=== PATIENT | male | born 1935 | race Hispanic/Latino ===

== ENCOUNTER 2018-05-27 08:35 | Observation (INO) | payer MEDICARE, BC ==
[2018-05-27] MEDS ORDERED: Aspirin 325 mg EC Tablets PO STA (08:58)
[2018-05-27 09:10] LABS: BASO # 0.1 K/uL (0.0-0.2); BASO % 0.6 % (0.0-2.0); EOS % 0.4 % (0.0-4.0); HEMOGLOBIN 14.2 g/dL (12.0-18.0); LYMPH # 0.9 K/uL (1.0-4.3); LYMPH % 9.6 % (20.0-40.0); MEAN CORPUSCULAR HEMOGLOBIN 35.4 pg (27.0-31.0); MEAN CORPUSCULAR HGB CONC 34.4 g/dL (33.0-37.0); MEAN PLATELET VOLUME 7.4 fL (7.2-11.7); MONO # 0.7 K/uL (0.0-0.8); MONO % 7.8 % (0.0-10.0); NEUT # 7.7 K/uL (1.8-7.0); NEUT % 81.6 % (50.0-75.0); PLATELET COUNT 165 K/uL (130-400); RED CELL DISTRIBUTION WIDTH 13.9 % (11.5-14.5)
[2018-05-27] MEDS ORDERED: Aspirin 325 mg EC Tablets PO ONE (09:10)
[2018-05-27 09:14] VITALS: BMI 21.4
[2018-05-27 09:15] LABS: WHITE BLOOD COUNT 9.4 K/uL (4.8-10.8)
[2018-05-27 09:18] LABS: INR 1.2; PROTHROMBIN TIME 12.7 SECONDS (9.7-12.2)
--- NOTE | 2018-05-27 09:18 | RAD ---
Date of service: 05/27/2018 PROCEDURE: CHEST RADIOGRAPH, 1 VIEW HISTORY: SOB COMPARISON: 11/19/2014 FINDINGS: LUNGS: Clear. PLEURA: No pneumothorax or pleural fluid seen. CARDIOVASCULAR: Normal. OSSEOUS STRUCTURES: No significant abnormalities. VISUALIZED UPPER ABDOMEN: Normal. OTHER FINDINGS: None. IMPRESSION: No active disease.
[2018-05-27 09:23] LABS: ALB/GLOB RATIO 1.3 (1.0-2.1); ALBUMIN 4.4 g/dL (3.5-5.0); ALT/SGPT 17 U/L (21-72); AST/SGOT 27 U/L (17-59); BLOOD UREA NITROGEN 15 mg/dL (9-20); CALCIUM 9.9 mg/dl (8.6-10.4); GFR AFRICAN-AMERICAN > 60; GFR NON-AFRICAN AMERICAN > 60
[2018-05-27 09:33] LABS: B-TYPE NATRIURETIC PEPTIDE 707 pg/mL (0-900)
--- NOTE | 2018-05-27 09:46 | C.PDOC ---
Time Seen by Provider: 05/27/18 08:45 Chief Complaint (Nursing): Chest Pain Past Medical History Vital Signs: Last Vital Signs Temp 98.7 F 05/27/18 08:45 Pulse 81 05/27/18 08:45 Resp 18 05/27/18 08:45 BP 167/77 H 05/27/18 08:45 Pulse Ox 98 05/27/18 09:48 - Medical History PMH: Diabetes, HTN, Hypercholesterolemia Surgical History: Denies: Pacemaker - [facility] Procedures CLOSED ENDOSCOPIC BIOPSY OF LARGE INTESTINE (06/28/05) ENDO EXCISION/DEST OF LESION OR TISSUE OF STOMACH (01/08/06) ENDO RECTUM POLYPECTOMY (01/13/03) ENDOSC POLYPECTOMY OF LG INTEST (10/31/07) ESOPHAGOGASTRODUODENOSCOPY [EGD] W/CLOSED BIOPSY (10/31/07) INJECT/INFUSE NEC (01/08/06) Family History: States: Unknown Family Hx - Social History Hx Tobacco Use: Yes Hx Alcohol Use: Yes (glass of wine) Hx Substance Use: No - Immunization History Hx Tetanus Toxoid Vaccination: No Hx Influenza Vaccination: Yes Hx Pneumococcal Vaccination: No ED Course And Treatment - Laboratory Results Result Diagrams: 05/27/18 09:02 05/27/18 09:02 O2 Sat by Pulse Oximetry: 98 Medical Decision Making Medical Decision Makin - discussed with Dr. Ankur Tabor and will admit to tele observation. Disposition Discussed With : Ankur Tabor Doctor Will See Patient In The: ED Counseled Patient/Family Regarding: Studies Performed, Diagnosis - Disposition Disposition: HOSPITALIZED Disposition Time: 09:50 Condition: FAIR Forms: [facility] (Armenian) - Clinical Impression Clinical Impression: Chest pain
[2018-05-27 09:51] LABS: BANDS 2 % (0-2); LYMPHOCYTE 9 % (20-40); MONOCYTE 6 % (0-10); NEUTROPHIL 83 % (50-75); TOTAL CELLS COUNTED 100
[2018-05-27 09:52] LABS: PLATELET ESTIMATE NORMAL (NORMAL)
--- NOTE | 2018-05-27 09:56 | C.PDOC ---
History Of Present Illness 82-year-old male, presents to the emergency department with complaints of chest pain that started at 06:30 this morning. Pain is left-sided and described as pressure. Associated symptoms include shortness of breath. He denies any nausea/ vomiting, back pain, fever, neck pain, or any other associated symptoms. No other complaints at this time. Time Seen by Provider: 05/27/18 08:45 Chief Complaint (Nursing): Chest Pain History Per: Patient History/Exam Limitations: no limitations Current Symptoms Are (Timing): Still Present Severity: Moderate Past Medical History Reviewed: Historical Data, Nursing Documentation, Vital Signs Vital Signs: Last Vital Signs Temp 98.7 F 05/27/18 08:45 Pulse 89 05/27/18 09:49 Resp 25 H 05/27/18 09:49 BP 167/75 H 05/27/18 09:49 Pulse Ox 98 05/27/18 10:01 - Medical History PMH: Diabetes, HTN, Hypercholesterolemia Surgical History: Denies: Pacemaker - [facility] Procedures CLOSED ENDOSCOPIC BIOPSY OF LARGE INTESTINE (06/28/05) ENDO EXCISION/DEST OF LESION OR TISSUE OF STOMACH (01/08/06) ENDO RECTUM POLYPECTOMY (01/13/03) ENDOSC POLYPECTOMY OF LG INTEST (10/31/07) ESOPHAGOGASTRODUODENOSCOPY [EGD] W/CLOSED BIOPSY (10/31/07) INJECT/INFUSE NEC (01/08/06) Family History: States: No Known Family Hx - Social History Hx Tobacco Use: Yes Hx Alcohol Use: Yes (glass of wine) Hx Substance Use: No - Immunization History Hx Tetanus Toxoid Vaccination: No Hx Influenza Vaccination: Yes Hx Pneumococcal Vaccination: No Review Of Systems Except As Marked, All Systems Reviewed And Found Negative. Cardiovascular: Positive for: Chest Pain Respiratory: Positive for: Shortness of Breath Gastrointestinal: Negative for: Nausea, Vomiting Musculoskeletal: Negative for: Neck Pain, Arm Pain, Back Pain Physical Exam - Physical Exam Appears: Non-toxic, No Acute Distress Skin: Normal Color, Warm, Dry, No Rash Head: Atraumatic, Normacephalic Eye(s): bilateral: Normal Inspection, PERRL, EOMI Nose: Normal Oral Mucosa: Moist Lips: Normal Appearing Neck: Normal ROM Cardiovascular: Rhythm Regular, No Murmur Respiratory: Normal Breath Sounds, No Accessory Muscle Use Gastrointestinal/Abdominal: Soft, No Tenderness Back: Normal Inspection Extremity: Normal ROM, No Deformity, No Swelling Neurological/Psych: Oriented x3, Normal Speech ED Course And Treatment - Laboratory Results Result Diagrams: 05/27/18 09:02 05/27/18 09:02 ECG: Interpreted By Me, Viewed By Me ECG Rhythm: Sinus Rhythm ECG Interpretation: No Acute Changes Interpretation Of ECbpm, poor R wave progression. Normal intervals. Normal [place]. O2 Sat by Pulse Oximetry: 98 Pulse Ox Interpretation: Normal (RA) Medical Decision Making Medical Decision Making: Plan * Bloodwork * Chest XR * Aspirin * Reassess and Disposition [id number] - discussed with Dr. Ankur Tabor and will admit to tele observation. Disposition - Disposition Disposition Time: 09:50 Condition: FAIR Forms: [facility] (Cuban) - Clinical Impression Clinical Impression: Chest pain - Scribe Statement The provider has reviewed the documentation as recorded by the Scribe (Javi Blake) All medical record entries made by the Scribe were at my direction and personally dictated by me. I have reviewed the chart and agree that the record accurately reflects my personal performance of the history, physical exam, medical decision making, and the department course for this patient. I have also personally directed, reviewed, and agree with the discharge instructions and disposition.
[2018-05-27] MEDS ORDERED: Dextrose 50% SYRINGE Inj (50 ml) IV PRN (12:26)
[2018-05-27] MEDS ORDERED: Glucagon Recombinant 1 mg Inj IM PRN (12:26)
--- NOTE | 2018-05-27 12:48 | CP.PCM.HP ---
<Martina Kirk - Last Filed: 05/27/18 17:57> History of Present Illness - History of Present Illness History of Present Illness: PGY-1 Martina Kirk Medicine History and Physical for Dr. Al service: History obtained from pt, , and friend. Pt is a poor historian regarding his PMH. Patient is an 82 yo male with a history of CAD with 5 stents, 4 cm aortic aneurysm, T2DM, HTN, and HLD who presents with substernal chest pain, SOB, and palpations that began this morning. The patient states he was feeling in his normal state of health when he woke up but then gradually developed chest pain around 7 AM while he was sitting. He describes the pain as pressure. He denies radiation of pain. The patient reports not eating anything or taking his medications because of the pain. 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 The patient reports that the pain resolved on its own shortly after arriving at the hospital. Of note, the patient states he was anxious the day prior due to losing $6000 gambling. The patient was given ASA 325 mg in the ED. Initial troponin and EKG were negative. The patient is now complaining of upper back pain, which he states is chronic. The patient also reports inconsistent compliance with medications, in particular , ASA 81. Pt reports that he ambulates independently at home. He denies PFEIFFER and sweating. He denies recent fevers of chills. He denies N/V/D/C/abd pain. He denies urinary symptoms. He denies current SOB, palpitations. Discussed with pt- is healthcare proxy, no advanced directives, full code PMH: CAD s/p 5 stents- most recent >5 yrs ago T2DM HTN HLD- not treated Aortic aneurysm 4 cm- seen on CT 10/2017 Pulmonary nodule in RLL 5 mm- seen on CT 04/2018 PSH: 5 cardiac stents (3+2) EGD with stomach Bx Rectal polypectomy Meds: Januvia 100 mg daily Glipizide 10 mg daily Losartan 50 mg daily Plavix 75 mg daily ASA 81 mg daily All: NKA FH: father- , old-age mother- age 69 of [place] 3 siblings- 2 children- healthy SH: 1 ppd since 19 yo >2 glasses of wine/day Denies illicit drug use Opens a [employer] Lives at home with PMD: Alin Cardio: [facility] GI: ??[facility] Pod: Raboy Present on Admission - Present on Admission Any Indicators Present on Admission: No History of DVT/PE: No History of Uncontrolled Diabetes: No Urinary Catheter: No Decubitus Ulcer Present: No History Surgical Site Infection Following: None Review of Systems - Constitutional Constitutional: absent: Chills, Excessive Sweating, Fever, Headache, Weakness - EENT Eyes: absent: Change in Vision Ears: absent: Tinnitus, Dizziness Nose/Mouth/Throat: absent: Nasal Congestion, Dry Mouth - Cardiovascular Cardiovascular: Chest Pain (mild). absent: Dyspnea, Edema, Irregular Heart Rhythm, Palpitations (resolved), Syncope - Respiratory Respiratory: absent: Cough, Wheezing, Chest Congestion - Gastrointestinal Gastrointestinal: absent: Abdominal Pain, Constipation, Diarrhea, Nausea, Vomiting - Genitourinary Genitourinary: absent: Difficulty Urinating, Dysuria, Hematuria - Musculoskeletal Musculoskeletal: Back Pain (upper, chronic). absent: Numbness, Radiating Pain into Limb, Tingling - Integumentary Integumentary: absent: New Lesions, Pruritus, Rash - Neurological Neurological: absent: Abnormal Speech, Behavioral Changes, Dizziness, Frequent Falls, Headaches, Sensory Deficit, Syncope, Tingling, Tremor - Psychiatric Psychiatric: Anxiety (regarding loss of money gambling). absent: Behavioral Changes, Confusion - Endocrine Endocrine: absent: Excessive Sweating, Fatigue, Palpitations, Polyuria - Hematologic/Lymphatic Hematologic: absent: Easy Bleeding, Easy Bruising, Lymphadenopathy Past Patient History - Infectious Disease Hx of Infectious Diseases: None - Tetanus Immunizations Tetanus Immunization: Unknown - Past Medical History & Family History Past Medical History?: Yes Pertinent Family History: Mother (69)- of [place] - Past Social History Smoking Status: Heavy Smoker > 10 Cigarettes Daily Chewing Tobacco Use: No Cigar Use: No Occupation: local owner operator truck driver of [employer] Alcohol: > 2 Drinks/Day (2-3 glasses of wine/day) Drugs: Denies Home Situation {Lives}: With Family () Domestic Violence: Negative - CARDIAC Hx Cardiac Disorders: Yes Hx Hypercholesterolemia: Yes Hx Hypertension: Yes Hx Pacemaker: No - NEUROLOGICAL Hx Paralysis: No - ENDOCRINE/METABOLIC Hx Diabetes Mellitus Type 2: Yes Other/Comment: DM - HEMATOLOGICAL/ONCOLOGICAL Hx Blood Transfusions: No Hx Blood Transfusion Reaction: No - MUSCULOSKELETAL/RHEUMATOLOGICAL Hx Musculoskeletal Disorders: No - PSYCHIATRIC Hx Substance Use: No - SURGICAL HISTORY Hx Surgeries: Yes - ANESTHESIA Hx Anesthesia: Yes Hx Anesthesia Reactions: No Hx Malignant Hyperthermia: No Meds Allergies/Adverse Reactions: Allergies Allergy/AdvReac Type Severity Reaction Status Date / Time No Known Allergies Allergy Verified 05/27/18 17:05 Physical Exam - Constitutional Appears: Well, No Acute Distress - Head Exam Head Exam: ATRAUMATIC, NORMAL INSPECTION, NORMOCEPHALIC - Eye Exam Eye Exam: EOMI, Normal appearance, PERRL - ENT Exam ENT Exam: Mucous Membranes Moist - Neck Exam Neck exam: Positive for: Normal Inspection. Negative for: Lymphadenopathy - Respiratory Exam Respiratory Exam: Clear to Auscultation Bilateral, NORMAL BREATHING PATTERN. absent: Rhonchi, Wheezes - Cardiovascular Exam Cardiovascular Exam: REGULAR RHYTHM, +S1, +S2 - GI/Abdominal Exam GI & Abdominal Exam: Bruit, Normal Bowel Sounds, Soft. absent: Tenderness - Rectal Exam Rectal Exam: Deferred - Extremities Exam Extremities exam: Positive for: full ROM, normal inspection, pedal pulses present. Negative for: pedal edema - Back Exam Back exam: NORMAL INSPECTION, paraspinal tenderness (upper thoracic). absent: vertebral tenderness - Neurological Exam Neurological exam: Alert, Oriented x3 - Psychiatric Exam Psychiatric exam: Normal Affect, Normal Mood - Skin Skin Exam: Dry, Intact, Normal Color, Warm Results - Vital Signs Recent Vital Signs: Last Vital Signs Temp 100.6 F H 05/27/18 11:14 Pulse 95 H 05/27/18 11:14 Resp 18 05/27/18 11:14 BP 166/77 H 05/27/18 11:14 Pulse Ox 99 05/27/18 11:14 - Labs Result Diagrams: 05/27/18 09:02 05/27/18 09:02 Labs: Laboratory Results - last 24 hr 05/27/18 05/27/18 05/27/18 09:02 09:02 09:07 WBC 9.4 D RBC 4.00 L Hgb 14.2 Hct 41.2 MCV 103.0 H MCH 35.4 H MCHC 34.4 RDW 13.9 Plt Count 165 MPV 7.4 Neut % (Auto) 81.6 H Lymph % (Auto) 9.6 L [place] % (Auto) 7.8 Eos % (Auto) 0.4 Baso % (Auto) 0.6 Neut # (Auto) 7.7 H Lymph # (Auto) 0.9 L [place] # (Auto) 0.7 Eos # (Auto) 0.0 Baso # (Auto) 0.1 Neutrophils % (Manual) 83 H Band Neutrophils % 2 Lymphocytes % (Manual) 9 L Monocytes % (Manual) 6 Platelet Estimate Normal Macrocytosis (manual) Slight PT 12.7 H INR 1.2 APTT 34 Sodium 136 Potassium 4.6 Chloride 97 L Carbon Dioxide 27 Anion Gap 16 BUN 15 Creatinine 0.8 Est GFR ( Amer) > 60 Est GFR (Non-Af Amer) > 60 Random Glucose 165 H Calcium 9.9 Total Bilirubin 1.2 AST 27 ALT 17 L D Alkaline Phosphatase 73 Troponin I < 0.0120 NT-Pro-B Natriuret Pep 707 Total Protein 8.0 Albumin 4.4 Globulin 3.5 Albumin/Globulin Ratio 1.3 - EKG Data EKG Interpreted by: ER Physician EKG shows normal: Sinus rhythm Rate: Normal - EKG Data When Compared to Previous EKG: No Significant Change Assessment & Plan - Assessment and Plan (Free Text) Assessment: Patient is an 82 yo male who presented with chest pain at rest. It resolved on its own. He has a h/o CAD with 5 cardiac stents. He also has a h/o aortic aneurysm, last measuring 4 cm in 04/2018. The patient reports continuing to smoke a pack a day. Need to r/o cardiac etiology and enlarging/dissecting aortic aneurysm. Plan: 1. Atypical chest pain- h/o cardiac stents x5 - Admit to telemetry - Cardiology consult (Dr. Cali) - Continue home Plavix 75 mg PO daily- f/u cardio recs, pt is >5 yrs since most recent stent - Start ASA 81 mg PO daily - D-dimer <200 - Troponins negative x2- trend third - EKG negative x2- f/u third - Echo- unknown most recent - TSH, T4 - F/u CTA chest/abd/pelvis 2. Aortic aneurysm- r/o aortic dissection - BPs b/l upper extremities - CTA 10/2017 IMPRESSION: Ascending aortic aneurysm measures approximately 4 cm in AP dimension. 5 mm pulmonary nodule, right lower lobe. Biapical pleural parenchymal fibrosis. Possible tiny gallstone. Pancreatic atrophy. T12 compression fracture deformity appears chronic - CTA 04/2018 MEDIASTINUM: Unremarkable thoracic aorta. No aneurysm. Normal sized heart. Main pulmonary artery unremarkable. No vascular congestion. No lymphadenopathy. IMPRESSION: Stable diffuse bilateral fibrotic changes with a stable 4 millimeter nodule in the right lower lobe. - F/u CTA chest/abd/pelvis 3. HTN - Continue home losartan 50 mg PO daily - F/u cardio recs - Vitals q4hrs 4. HLD- not on statin - Start Crestor 5 mg PO qhs - Lipid panel in AM 5. T2DM - F/u A1c - Continue home Januvia 100 mg PO daily - Continue home glipizide 10 mg PO daily - Low-dose sliding scale - Hypoglycemic protocol 6. Pulmonary nodule, RLL- pt asymptomatic, 63 pk yrs - See previous CTA results above - F/u CTA chest/abd/pelvis VTE ppx: SCDs, hold heparin until CTA results GI ppx: not indicated IVF: not indicated Diet: Heart healthy Code status: full code <Ankur Tabor - Last Filed: 05/30/18 19:04> Results - Vital Signs Recent Vital Signs: Last Vital Signs Temp 98.8 F 05/30/18 07:20 Pulse 92 H 05/30/18 08:06 Resp 20 05/30/18 07:20 BP 134/73 05/30/18 07:20 Pulse Ox 97 05/30/18 07:20 - Labs Result Diagrams: 05/29/18 07:47 05/29/18 07:47 Labs: Laboratory Results - last 24 hr 05/29/18 05/30/18 21:02 06:03 POC Glucose (mg/dL) 214 H 141 H Attending/Attestation - Attestation I have personally seen and examined this patient.: Yes I have fully participated in the care of the patient.: Yes I have reviewed all pertinent clinical information: Yes Notes (Text): 05/30/18 19:03 This is a late entry. History, physical, assessment and plan, and all orders were gone over in detail with the resident. Ankur Tabor D.O.
[2018-05-27 15:37] VITALS: RESP 20
[2018-05-27] MEDS ORDERED: Iodixanol 320 MG/ML 100 ML BOTTLE IV ONE (16:45)
[2018-05-27] MEDS: (Novolin R) Insulin Human Regular 100 units/ml vial SC SCH ×2 (17:30→22:04)
--- NOTE | 2018-05-27 18:54 | CP.PCM.CON ---
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 Here at , ECHO normal (my review) TNI neg once, and echo normal LV EF and wall motion. Pain has subsided. Pt is a diabetic. CT of the chest and abdomen just ordered and done, results pending. Pt has no known CAD. Review of Systems - Review of Systems All systems: reviewed and no additional remarkable complaints except (as above) Past Patient History - Infectious Disease Hx of Infectious Diseases: None - Tetanus Immunizations Tetanus Immunization: Unknown - Past Medical History & Family History Past Medical History?: Yes - Past Social History Smoking Status: Heavy Smoker > 10 Cigarettes Daily Chewing Tobacco Use: No Cigar Use: No Occupation: promotions assistant sales marketing of [employer] Alcohol: > 2 Drinks/Day (2-3 glasses of wine/day) Drugs: Denies Home Situation {Lives}: With Family () Domestic Violence: Negative - CARDIAC Hx Cardiac Disorders: Yes Hx Hypercholesterolemia: Yes Hx Hypertension: Yes Hx Pacemaker: No - NEUROLOGICAL Hx Paralysis: No - ENDOCRINE/METABOLIC Hx Diabetes Mellitus Type 2: Yes Other/Comment: DM - HEMATOLOGICAL/ONCOLOGICAL Hx Blood Transfusions: No Hx Blood Transfusion Reaction: No - MUSCULOSKELETAL/RHEUMATOLOGICAL Hx Musculoskeletal Disorders: No - PSYCHIATRIC Hx Substance Use: No - SURGICAL HISTORY Hx Surgeries: Yes - ANESTHESIA Hx Anesthesia: Yes Hx Anesthesia Reactions: No Hx Malignant Hyperthermia: No Meds Allergies/Adverse Reactions: Allergies Allergy/AdvReac Type Severity Reaction Status Date / Time No Known Allergies Allergy Verified 05/27/18 17:05 - Medications Medications: Current Medications Acetaminophen (Tylenol 325mg Tab) 650 mg PO Q6 PRN PRN Reason: fever, pain Aspirin (Ecotrin) 81 mg PO DAILY JAMIN Clopidogrel Bisulfate (Plavix) 75 mg PO DAILY JAMIN Dextrose (Dextrose 50% Inj) 0 ml IV STAT PRN; Protocol PRN Reason: Hypoglycemia Protocol Dextrose (Glutose 15) 0 gm PO ONCE PRN; Protocol PRN Reason: Hypoglycemia Protocol Glipizide (Glucotrol) 10 mg PO DAILY JAMIN Glucagon (Glucagen Diagnostic Kit) 0 mg IM STAT PRN; Protocol PRN Reason: Hypoglycemia Protocol Dextrose (Dextrose 5% In Water 1000 Ml) 1,000 mls @ 0 mls/hr IV .Q0M PRN; Protocol; Per Protocol PRN Reason: Hypoglycemia Protocol Insulin Human Regular (Novolin R) 0 unit SC ACHS JAMIN PRN Reason: Protocol Last Admin: 05/27/18 17:30 Dose: 2 units Losartan Potassium (Cozaar) 50 mg PO DAILY JAMIN Pneumococcal Polyvalent Vaccine (Pneumovax 23 Vaccine) 0.5 ml IM .ONCE ONE Stop: 05/28/18 10:01 Rosuvastatin Calcium (Crestor) 5 mg PO HS JAMIN Sitagliptin Phosphate (Januvia) 100 mg PO DAILY JAMIN Physical Exam - Constitutional Appears: Well - Head Exam Head Exam: ATRAUMATIC - Eye Exam Eye Exam: EOMI - ENT Exam ENT Exam: Mucous Membranes Moist - Neck Exam Neck exam: Positive for: Normal Inspection - Respiratory Exam Respiratory Exam: Clear to Auscultation Bilateral - Cardiovascular Exam Cardiovascular Exam: REGULAR RHYTHM - GI/Abdominal Exam GI & Abdominal Exam: Normal Bowel Sounds - Exam External exam: NORMAL EXTERNAL EXAM - Extremities Exam Extremities exam: Positive for: normal inspection - Back Exam Back exam: NORMAL INSPECTION - Neurological Exam Neurological exam: Alert, Oriented x3, Reflexes Normal - Psychiatric Exam Psychiatric exam: Normal Affect - Skin Skin Exam: Normal Color Results - Vital Signs Recent Vital Signs: Last Vital Signs Temp 98.7 F 05/27/18 15:31 Pulse 78 05/27/18 15:31 Resp 20 05/27/18 15:31 BP 120/78 05/27/18 15:31 Pulse Ox 95 05/27/18 15:31 - Labs Result Diagrams: 05/27/18 09:02 05/27/18 09:02 Labs: Laboratory Results - last 24 hr 05/27/18 05/27/18 05/27/18 09:02 09:02 09:07 WBC 9.4 D RBC 4.00 L Hgb 14.2 Hct 41.2 MCV 103.0 H MCH 35.4 H MCHC 34.4 RDW 13.9 Plt Count 165 MPV 7.4 Neut % (Auto) 81.6 H Lymph % (Auto) 9.6 L [place] % (Auto) 7.8 Eos % (Auto) 0.4 Baso % (Auto) 0.6 Neut # (Auto) 7.7 H Lymph # (Auto) 0.9 L [place] # (Auto) 0.7 Eos # (Auto) 0.0 Baso # (Auto) 0.1 Neutrophils % (Manual) 83 H Band Neutrophils % 2 Lymphocytes % (Manual) 9 L Monocytes % (Manual) 6 Platelet Estimate Normal Macrocytosis (manual) Slight PT 12.7 H INR 1.2 APTT 34 D-Dimer, Quantitative Sodium 136 Potassium 4.6 Chloride 97 L Carbon Dioxide 27 Anion Gap 16 BUN 15 Creatinine 0.8 Est GFR ( Amer) > 60 Est GFR (Non-Af Amer) > 60 Random Glucose 165 H Calcium 9.9 Total Bilirubin 1.2 AST 27 ALT 17 L D Alkaline Phosphatase 73 Troponin I < 0.0120 NT-Pro-B Natriuret Pep 707 Total Protein 8.0 Albumin 4.4 Globulin 3.5 Albumin/Globulin Ratio 1.3 TSH 3rd Generation 05/27/18 05/27/18 14:00 15:10 WBC RBC Hgb Hct MCV MCH MCHC RDW Plt Count MPV Neut % (Auto) Lymph % (Auto) [place] % (Auto) Eos % (Auto) Baso % (Auto) Neut # (Auto) Lymph # (Auto) [place] # (Auto) Eos # (Auto) Baso # (Auto) Neutrophils % (Manual) Band Neutrophils % Lymphocytes % (Manual) Monocytes % (Manual) Platelet Estimate Macrocytosis (manual) PT INR APTT D-Dimer, Quantitative < 200 Sodium Potassium Chloride Carbon Dioxide Anion Gap BUN Creatinine Est GFR ( Amer) Est GFR (Non-Af Amer) Random Glucose Calcium Total Bilirubin AST ALT Alkaline Phosphatase Troponin I < 0.0120 NT-Pro-B Natriuret Pep Total Protein Albumin Globulin Albumin/Globulin Ratio TSH 3rd Generation 0.47 - EKG Data EKG Interpreted by: Myself EKG shows normal: Sinus rhythm (normal) Assessment & Plan - Assessment and Plan (Free Text) Assessment: Although pt is a diabetic and elderly, and at increased risk for CV events, all work up so far is normal. Advise repeat TNI. If negative, and CT is also negative, pt can have an outpatient nuclear stress with lexiscan (pt says that he has gait imbalance). TNI ordered for tomorrow. Advise ambulation.
--- NOTE | 2018-05-27 23:40 | CARD ---
APPROVED REPORT Date of service: 05/27/2018 EXAM: Two-dimensional and M-mode echocardiogram with Doppler and color Doppler. Other Information Quality : GoodRhythm : INDICATION Chest Pain RISK FACTORS Hypertension Hyperlipidemia Diabetes Smoking 2D DIMENSIONS IVSd1.0 (0.7-1.1cm)LVDd4.0 (3.9-5.9cm) PWd1.1 (0.7-1.1cm)LVDs2.7 (2.5-4.0cm) FS (%) 32.5 %LVEF (%)61.3 (>50%) M-Mode DIMENSIONS RVDd1.63 (2.1-3.2cm)Left Atrium (MM)3.53 (2.5-4.0cm) IVSd1.01 (0.7-1.1cm)Aortic Root3.11 (2.2-3.7cm) LVDd4.33 (4.0-5.6cm)Aortic Cusp Exc.1.73 (1.5-2.0cm) PWd0.94 (0.7-1.1cm)FS (%) 46 % LVDs2.34 (2.0-3.8cm)LVEF (%)69 (>50%) Mitral Valve MV E Qgwhjgjd73.1cm/sMV A Byidovex960.8cm/sE/A ratio0.8 TDI E/Lateral E'0.0E/Medial E'0.0 Tricuspid Valve TR Peak [id number]/sTR Peak [id number] LEFT VENTRICLE The left ventricle is normal size. There is normal left ventricular wall thickness. Left ventricle systolic function is normal. The Ejection Fraction is 65-70%. There is normal LV segmental wall motion. The left ventricular diastolic function is abnormal- Grade I-abnormal relaxation pattern. No left ventricle thrombus noted on this study. RIGHT VENTRICLE The right ventricle is normal size. The right ventricular systolic function is normal. ATRIA The left atrium size is normal. The right atrium size is normal. AORTIC VALVE The aortic valve is mildly sclerotic. The aortic valve is trileaflet. No aortic regurgitation is present. There is no aortic valvular stenosis. There is no aortic valvular vegetation. MITRAL VALVE Mitral annular calcification is mild. There is no evidence of mitral valve prolapse. There is no mitral valve stenosis. There is no mitral valve regurgitation noted. TRICUSPID VALVE The tricuspid valve is normal. There is trace to mild tricuspid regurgitation. Right ventricular systolic pressure is estimated at 30-40 mmHg. There is no pulmonary hypertension. PULMONIC VALVE The pulmonary valve is normal in structure. There is no pulmonic valvular regurgitation. There is no pulmonic valvular stenosis. GREAT VESSELS The aortic root is normal in size. The IVC is normal in size and collapses >50% with inspiration. PERICARDIAL EFFUSION There is no pericardial effusion. There is no pleural effusion. <Conclusion> The left ventricle is normal size. Left ventricle systolic function is normal. The Ejection Fraction is 65-70%. The left ventricular diastolic function is abnormal- Grade I-abnormal relaxation pattern. The right ventricle is normal size. The right ventricular systolic function is normal. The left atrium size is normal. The right atrium size is normal. There is trace to mild tricuspid regurgitation.
[2018-05-28 07:38] LABS: BASO % 0.3 % (0.0-2.0); EOS # 0.1 K/uL (0.0-0.7); EOS % 0.9 % (0.0-4.0); HEMOGLOBIN 14.1 g/dL (12.0-18.0); LYMPH % 14.5 % (20.0-40.0); MEAN CELL VOLUME 102.8 fL (80.0-94.0); MEAN CORPUSCULAR HEMOGLOBIN 36.3 pg (27.0-31.0); MEAN CORPUSCULAR HGB CONC 35.3 g/dL (33.0-37.0); MEAN PLATELET VOLUME 7.9 fL (7.2-11.7); MONO # 0.8 K/uL (0.0-0.8); MONO % 11.6 % (0.0-10.0); NEUT # 5.1 K/uL (1.8-7.0); NEUT % 72.7 % (50.0-75.0); NRBC % 0.1 % (0.0-2.0); RBC 3.89 Mil/uL (4.40-5.90); RED CELL DISTRIBUTION WIDTH 13.9 % (11.5-14.5); WHITE BLOOD COUNT 7.1 K/uL (4.8-10.8)
--- NOTE | 2018-05-28 07:53 | CP.PCM.DIS ---
Provider - Provider Date of Admission: 05/27/18 09:49 Attending physician: Ankur Tabor MD Primary care physician: Alin Consults: cardio (Amanda) Time Spent in preparation of Discharge (in minutes): 45 Hospital Course - Lab Results Lab Results: Most Recent Lab Values WBC 7.1 K/uL (4.8-10.8) 05/28/18 07:22 RBC 3.89 Mil/uL (4.40-5.90) L 05/28/18 07:22 Hgb 14.1 g/dL (12.0-18.0) 05/28/18 07:22 Hct 40.0 % (35.0-51.0) 05/28/18 07: MCV 102.8 fL (80.0-94.0) H 05/28/18 07:22 MCH 36.3 pg (27.0-31.0) H 05/28/18 07:22 MCHC 35.3 g/dL (33.0-37.0) 05/28/18 07:22 RDW 13.9 % (11.5-14.5) 05/28/18 07:22 Plt Count 147 K/uL (130-400) 05/28/18 07:22 MPV 7.9 fL (7.2-11.7) 05/28/18 07:22 Neut % (Auto) 72.7 % (50.0-75.0) 05/28/18 07:22 Lymph % (Auto) 14.5 % (20.0-40.0) L 05/28/18 07:22 [place] % (Auto) 11.6 % (0.0-10.0) H 05/28/18 07:22 Eos % (Auto) 0.9 % (0.0-4.0) 05/28/18 07:22 Baso % (Auto) 0.3 % (0.0-2.0) 05/28/18 07:22 Neut # (Auto) 5.1 K/uL (1.8-7.0) 05/28/18 07:22 Lymph # (Auto) 1.0 K/uL (1.0-4.3) 05/28/18 07:22 [place] # (Auto) 0.8 K/uL (0.0-0.8) 05/28/18 07:22 Eos # (Auto) 0.1 K/uL (0.0-0.7) 05/28/18 07:22 Baso # (Auto) 0.0 K/uL (0.0-0.2) 05/28/18 07:22 Neutrophils % (Manual) 83 % (50-75) H 05/27/18 09:02 Band Neutrophils % 2 % (0-2) 05/27/18 09:02 Lymphocytes % (Manual) 9 % (20-40) L 05/27/18 09:02 Monocytes % (Manual) 6 % (0-10) 05/27/18 09:02 Platelet Estimate Normal (NORMAL) 05/27/18 09:02 Macrocytosis (manual) Slight 05/27/18 09:02 PT 12.7 SECONDS (9.7-12.2) H 05/27/18 09:07 INR 1.2 05/27/18 09:07 APTT 34 SECONDS (21-34) 05/27/18 09:07 D-Dimer, Quantitative < 200 ng/mlDDU (0-243) 05/27/18 14:00 Sodium 136 mmol/L (132-148) 05/27/18 09:02 Potassium 4.6 mmol/L (3.6-5.2) 05/27/18 09:02 Chloride 97 mmol/L (98-107) L 05/27/18 09:02 Carbon Dioxide 27 mmol/L (22-30) 05/27/18 09:02 Anion Gap 16 (10-20) 05/27/18 09:02 BUN 15 mg/dL (9-20) 05/27/18 09:02 Creatinine 0.8 mg/dL (0.8-1.5) 05/27/18 09:02 Est GFR ( Amer) > 60 05/27/18 09:02 Est GFR (Non-Af Amer) > 60 05/27/18 09:02 Random Glucose 165 mg/dL (75-110) H 05/27/18 09:02 Calcium 9.9 mg/dl (8.6-10.4) 05/27/18 09:02 Total Bilirubin 1.2 mg/dL (0.2-1.3) 05/27/18 09:02 AST 27 U/L (17-59) 05/27/18 09:02 ALT 17 U/L (21-72) L D 05/27/18 09:02 Alkaline Phosphatase 73 U/L (38-126) 05/27/18 09:02 Troponin I < 0.0120 ng/mL (0.00-0.120) 05/27/18 21:14 NT-Pro-B Natriuret Pep 707 pg/mL (0-900) 05/27/18 09:02 Total Protein 8.0 g/dL (6.3-8.3) 05/27/18 09:02 Albumin 4.4 g/dL (3.5-5.0) 05/27/18 09:02 Globulin 3.5 gm/dL (2.2-3.9) 05/27/18 09:02 Albumin/Globulin Ratio 1.3 (1.0-2.1) 05/27/18 09:02 TSH 3rd Generation 0.47 mIU/L (0.46-4.68) 05/27/18 15:10 Discharge Exam - Head Exam Head Exam: ATRAUMATIC Discharge Plan - Follow Up Plan Condition: FAIR Disposition: HOME/ ROUTINE
[2018-05-28 08:02] LABS: BLOOD UREA NITROGEN 17 mg/dL (9-20); CALCIUM 9.1 mg/dl (8.6-10.4); GFR AFRICAN-AMERICAN > 60; GFR NON-AFRICAN AMERICAN > 60; HDL CHOLESTEROL 38 mg/dL (30-70)
[2018-05-28 08:13] LABS: LDL CHOLESTEROL 34 mg/dL (0-129)
[2018-05-28] MEDS ORDERED: Pneumococcal 23-Valent Vaccine IM ONE (10:00)
--- NOTE | 2018-05-28 10:42 | CP.PCM.PN ---
Subjective - Date & Time of Evaluation Date of Evaluation: 05/28/18 Time of Evaluation: 09:40 - Subjective Subjective: PGY-1 Martina Kirk D.O. Medicine progress note for Dr. Kirkland's service: Patient was seen and examined this morning. He was resting comfortably in bed. He states he slept well and is feeling good. He reports chest pain has resolved. He is still having mild upper back pain, but this is chronic. Denies palpitations. Denies SOB. Denies fever, chills, or diaphoresis. Denies N/V/D/C. Objective - Vital Signs/Intake and Output Vital Signs (last 24 hours): Temp Pulse Resp BP Pulse Ox 98.0 F 92 H 20 104/63 98 05/28/18 07:20 05/28/18 07:50 05/28/18 07:20 05/28/18 07:20 05/28/18 08:14 Intake and Output: 05/28/18 05/28/18 06:59 18:59 Output Total 400 Balance -400 - Medications Medications: Current Medications Acetaminophen (Tylenol 325mg Tab) 650 mg PO Q6 PRN PRN Reason: fever, pain Apixaban (Eliquis) 2.5 mg PO BID [facility] Aspirin (Ecotrin) 81 mg PO DAILY [facility] Dextrose (Dextrose 50% Inj) 0 ml IV STAT PRN; Protocol PRN Reason: Hypoglycemia Protocol Dextrose (Glutose 15) 0 gm PO ONCE PRN; Protocol PRN Reason: Hypoglycemia Protocol Glipizide (Glucotrol) 10 mg PO DAILY [facility] Glucagon (Glucagen Diagnostic Kit) 0 mg IM STAT PRN; Protocol PRN Reason: Hypoglycemia Protocol Dextrose (Dextrose 5% In Water 1000 Ml) 1,000 mls @ 0 mls/hr IV .Q0M PRN; Protocol; Per Protocol PRN Reason: Hypoglycemia Protocol Insulin Human Regular (Novolin R) 0 unit SC ACHS [facility] PRN Reason: Protocol Last Admin: 05/27/18 22:04 Dose: Not Given Metoprolol Succinate (Toprol Xl) 25 mg PO DAILY [facility] Rosuvastatin Calcium (Crestor) 5 mg PO HS [facility] Last Admin: 05/27/18 23:00 Dose: 5 mg Sitagliptin Phosphate (Januvia) 100 mg PO DAILY [facility] - Labs Labs: 05/28/18 07:22 05/28/18 07:22 PT 12.7 SECONDS (9.7-12.2) H 05/27/18 09:07 INR 1.2 05/27/18 09:07 APTT 34 SECONDS (21-34) 05/27/18 09:07 - Constitutional Appears: Well, No Acute Distress, Other (thin) - Head Exam Head Exam: ATRAUMATIC, NORMAL INSPECTION, NORMOCEPHALIC - Eye Exam Eye Exam: EOMI, Normal appearance - ENT Exam ENT Exam: Mucous Membranes Moist, Normal Exam - Neck Exam Neck Exam: Normal Inspection - Respiratory Exam Respiratory Exam: Clear to Ausculation Bilateral, NORMAL BREATHING PATTERN. absent: Rhonchi, Wheezes - Cardiovascular Exam Cardiovascular Exam: Irregular Rhythm (Afib- rate 90) - GI/Abdominal Exam GI & Abdominal Exam: Bruit, Soft, Normal Bowel Sounds. absent: Mass - Rectal Exam Rectal Exam: Deferred - Extremities Exam Extremities Exam: Full ROM, Normal Inspection. absent: Pedal Edema - Back Exam Back Exam: NORMAL INSPECTION, paraspinal tenderness (upper thoracic). absent: vertebral tenderness - Neurological Exam Neurological Exam: Alert, Awake, Oriented x3. absent: Normal Gait (unsteady) - Psychiatric Exam Psychiatric exam: Normal Affect, Normal Mood - Skin Skin Exam: Dry, Intact, Normal Color, Warm Assessment and Plan - Assessment and Plan (Free Text) Assessment: Patient is an 82 yo male who presented with chest pain at rest. It resolved on its own. He has a h/o CAD with 5 cardiac stents. He also has a h/o aortic aneurysm, last measuring 4 cm in 04/2018. The patient reports continuing to smoke a pack a day. Ruled out enlarging/dissecting aortic aneurysm with CTA. New onset paroxysmal Afib last night. Patient again in Afib in afternoon. Patient is asymptomatic- denies chest pain, palpitations, SOB. Plan: Atypical chest pain- h/o cardiac stents x5 - Admit to telemetry - Cardiology consult (Dr. Cali)- stress test in AM - Incentive spirometer q4hrs while awake - ASA 81 mg PO daily - Discontinue Plavix as stents were >1 yr ago - D-dimer <200 - BNP 707 - Troponins negative x4 - EKG negative x2 - Third EKG Afib RVR (109) - Fourth EKG Afib (90s) - Echo- EF 65-70%, no overt abnormalities to explain symptoms - TSH, T4 - F/u CTA chest/abd/pelvis - F/u stress test New onset paroxysmal atrial fibrillation- Afib RVR overnight, then a brief run of aberration was noted, not V tach, prior to onset Afib this afternoon - Monitor on telemetry - Start metoprolol succinate 25 mg PO daily - Start Eliquis 2.5 mg PO BID - Discontinue Plavix as stents were >1 yr ago - Cardiology consult (Karely) - F/u stress test Aortic aneurysm- r/o aortic dissection - BPs b/l upper extremities equal - CTA 10/2017 IMPRESSION: Ascending aortic aneurysm measures approximately 4 cm in AP dimension. - CTA 04/2018 MEDIASTINUM: Unremarkable thoracic aorta. No aneurysm. - CTA chest/abd/pelvis 05/27- in the abd and pelvis, arterial phase contrast- enhanced and lack of oral contrast limits interpretation, abd u/s recommended AORTA: The main pulmonary artery segment is normal in caliber. No thoracic aortic aneurysm. Remainder of the retroperitoneum reflects non aneurysmal atherosclerotic abdominal aorta. T2DM, chronic - A1c 7.4 - Continue home Januvia 100 mg PO daily - Continue home glipizide 10 mg PO daily - Accuchecks ACHS - Low-dose sliding scale - Hypoglycemic protocol Essential HTN, chronic, stable - Discontinue losartan - Start metoprolol succinate 25 mg PO daily - Vitals q4hrs HLD, chronic, stable- not on home statin - Start Crestor 5 mg PO qhs - Lipid panel wnl Pulmonary nodule, RLL, stable in size- pt asymptomatic, 63 pk yrs - Incentive spirometer q4hrs while awake - CT 10/2017- 5 mm pulmonary nodule, right lower lobe. - CTA chest/abd/pelvis 05/27: COPD pattern reiterated with stable 5 mm nodule right lower lobe. VTE ppx: SCDs, Eliquis 2.5 mg PO BID GI ppx: not indicated IVF: not indicated Diet: Heart healthy Code status: full code
[2018-05-28] MEDS: (Novolin R) Insulin Human Regular 100 units/ml vial SC SCH ×4 (11:00→21:10)
--- NOTE | 2018-05-28 12:36 | CT ---
Date of service: 05/27/2018 PROCEDURE: CT Chest with contrast (Pulmonary Angiogram) HISTORY: h/o aortic aneurysm COMPARISON: Chest CT without contrast 05/01/2018. TECHNIQUE: Axial computed tomography images were obtained of the chest in the pulmonary arterial phase of enhancement. Coronal and sagittal reformatted images were created and reviewed. Imaging of the abdomen pelvis completed from the domes the diaphragm to the symphysis pubis in the arterial phase of contrast enhancement. Intravenous contrast dose: Visipaque 320, 100 cc Radiation dose: Total exam DLP = 517.50 mGy-cm. This CT exam was performed using one or more of the following dose reduction techniques: Automated exposure control, adjustment of the mA and/or kV according to patient size, and/or use of iterative reconstruction technique. FINDINGS: PULMONARY ARTERIES: Unremarkable. No pulmonary embolism. AORTA: The main pulmonary artery segment is normal in caliber. No thoracic aortic aneurysm. LUNGS: COPD pattern reiterated. No alveolar infiltrate. Linear atelectasis or fibrosis in the right upper lobe posterior laterally. Stable 5 mm nodule right lower lobe image 64 series 4. PLEURAL SPACES: Unremarkable. No effusion or pneumothorax. HEART: No cardiomegaly. Minimal pericardial effusion identified. LYMPH NODES: Mild mediastinal lymphadenopathy is appreciate including a sub carinal lymph node measuring 2.1 x 1.5 cm. Otherwise shotty paratracheal lymph nodes are identified. BONES, CHEST WALL: The thoracic inlet appears unremarkable. No fracture or destructive lesion ABDOMEN AND PELVIS: In the abdomen and pelvis, arterial phase contrast-enhanced and lack of oral contrast limits the interpretation. No masses or gross intrahepatic biliary dilatation is seen throughout the liver with the spleen nonfocal except for small granuloma calcified at the inferior portion. The gallbladder is contracted with cholelithiasis at the neck. Stomach is distended with retained oral contrast material. Pancreas is mildly atrophic but without mass or ductal dilatation. Bilateral adrenal glands appear normal a small cyst is seen at the upper pole right kidney. Tiny lucency is seen at the upper midpole left kidney potentially reflecting cortical infarct. Remainder of the retroperitoneum reflects line non aneurysmal atherosclerotic abdominal aorta. The bowel is not obstructed. Moderate AP material scattered throughout the majority colon. No pericolic reaction appreciated throughout. Small bowel is unremarkable as imaged. Normal appendix. Images through the pelvis reveal a mildly thick-walled urinary bladder moderately distended, with cystitis difficult to completely exclude versus possible outlet obstruction. Prostate gland is enlarged with cystic changes at the central to upper segment. Clinically correlate. There is a lumbarized transitional S1 vertebral body. A moderate anterior wedge compression fracture is chronic. No acute fracture identified or spondylolisthesis. IMPRESSION: 1. No CT evidence of pulmonary embolus. 2. COPD pattern reiterated with stable 5 mm nodule right lower lobe. 3. No acute abdominal or pelvic findings including T12 to body fracture appeared S1 is lumbarized. 4. Cholelithiasis. 5. Enlarged prostate gland with cystic changes. Thick-walled urinary bladder may reflect outlet obstruction or cystitis. Clinically correlate further. Concordant preliminary report from [facility], 05/27/2018.
[2018-05-28] MEDS ORDERED: Metoprolol Succinate 25 mg XL Tab PO ONE (15:12)
--- NOTE | 2018-05-28 15:26 | CARD ---
APPROVED REPORT Date of service: 05/28/2018 EKG Measurement Heart [id number] <Conclusion> Atrial fibrillation with rapid ventricular response Left axis deviation Septal infarct, age undetermined Abnormal ECG
--- NOTE | 2018-05-28 15:37 | CP.PCM.PN ---
Subjective - Date & Time of Evaluation Date of Evaluation: 05/28/18 Time of Evaluation: 15:30 - Subjective Subjective: THe patient feels well. He went into atrial fibrillation, and has stayed there. A brief run of aberration was noted, not V tach. The rate is in the 90's Pt has a 4.0 cm abdominal aortic aneurysm. Yesterday, pt neglected to tell me that he has had cardiac stents, several, the last 2 years ago. Objective - Vital Signs/Intake and Output Vital Signs (last 24 hours): Temp Pulse Resp BP Pulse Ox 98.0 F 88 20 104/63 93 L 05/28/18 07:20 05/28/18 11:44 05/28/18 07:20 05/28/18 07:20 05/28/18 10:45 Intake and Output: 05/28/18 05/28/18 06:59 18:59 Output Total 400 Balance -400 - Medications Medications: Current Medications Acetaminophen (Tylenol 325mg Tab) 650 mg PO Q6 PRN PRN Reason: fever, pain Apixaban (Eliquis) 2.5 mg PO BID [facility] Last Admin: 05/28/18 12:43 Dose: 2.5 mg Aspirin (Ecotrin) 81 mg PO DAILY [facility] Last Admin: 05/28/18 11:00 Dose: 81 mg Dextrose (Dextrose 50% Inj) 0 ml IV STAT PRN; Protocol PRN Reason: Hypoglycemia Protocol Dextrose (Glutose 15) 0 gm PO ONCE PRN; Protocol PRN Reason: Hypoglycemia Protocol Glipizide (Glucotrol) 10 mg PO DAILY [facility] Last Admin: 05/28/18 11:00 Dose: 10 mg Glucagon (Glucagen Diagnostic Kit) 0 mg IM STAT PRN; Protocol PRN Reason: Hypoglycemia Protocol Dextrose (Dextrose 5% In Water 1000 Ml) 1,000 mls @ 0 mls/hr IV .Q0M PRN; Protocol; Per Protocol PRN Reason: Hypoglycemia Protocol Insulin Human Regular (Novolin R) 0 unit SC ACHS [facility] PRN Reason: Protocol Last Admin: 05/28/18 12:43 Dose: 5 units Metoprolol Succinate (Toprol Xl) 25 mg PO DAILY [facility] Rosuvastatin Calcium (Crestor) 5 mg PO HS [facility] Last Admin: 05/27/18 23:00 Dose: 5 mg Sitagliptin Phosphate (Januvia) 100 mg PO DAILY [facility] Last Admin: 05/28/18 11:00 Dose: 100 mg - Labs Labs: 05/28/18 07:22 05/28/18 07:22 PT 12.7 SECONDS (9.7-12.2) H 05/27/18 09:07 INR 1.2 05/27/18 09:07 APTT 34 SECONDS (21-34) 05/27/18 09:07 - Constitutional Appears: Well - Head Exam Head Exam: NORMAL INSPECTION - Eye Exam Eye Exam: EOMI - ENT Exam ENT Exam: Mucous Membranes Moist - Neck Exam Neck Exam: Full ROM - Respiratory Exam Respiratory Exam: Clear to Ausculation Bilateral - Cardiovascular Exam Cardiovascular Exam: Irregular Rhythm - GI/Abdominal Exam GI & Abdominal Exam: Normal Bowel Sounds - Exam External exam: NORMAL EXTERNAL EXAM - Extremities Exam Extremities Exam: Normal Inspection - Back Exam Back Exam: NORMAL INSPECTION - Neurological Exam Neurological Exam: Alert, Awake, Normal Gait - Psychiatric Exam Psychiatric exam: Normal Affect - Skin Skin Exam: Normal Color Assessment and Plan - Assessment and Plan (Free Text) Assessment: 1. Atrial fibrillation: beta adryan resumed for rate control, (pt was taking as outpatient). Advance as needed if BP allows. 2. Stop losartan as bp is low (normal LV EF). 3. Eliquis 2.5 bid, asa 81, stop plavic (stents were more than a year ago). 4. Chest discomfort: as p[t has known cad, a stress test will be performed tomorrow, preferably with walking, to assess ischemia based on the patients actual functional capacity (lexiscan, a maximal stress, would not represent his daily myocardial perfusion demand). 5. pt has alleged AAA. CT did not mention it as the dye had dissipated by the time the abdomen was scanned. Abdominal US is advised.
[2018-05-29 08:18] LABS: BASO % 0.4 % (0.0-2.0); EOS # 0.1 K/uL (0.0-0.7); EOS % 1.7 % (0.0-4.0); HEMOGLOBIN 13.5 g/dL (12.0-18.0); LYMPH # 1.2 K/uL (1.0-4.3); LYMPH % 14.9 % (20.0-40.0); MEAN CELL VOLUME 103.1 fL (80.0-94.0); MEAN CORPUSCULAR HEMOGLOBIN 36.2 pg (27.0-31.0); MEAN CORPUSCULAR HGB CONC 35.1 g/dL (33.0-37.0); MEAN PLATELET VOLUME 7.7 fL (7.2-11.7); MONO # 0.9 K/uL (0.0-0.8); MONO % 10.7 % (0.0-10.0); NEUT # 5.8 K/uL (1.8-7.0); NEUT % 72.3 % (50.0-75.0); RBC 3.75 Mil/uL (4.40-5.90); RED CELL DISTRIBUTION WIDTH 14.2 % (11.5-14.5)
[2018-05-29] MEDS: (Novolin R) Insulin Human Regular 100 units/ml vial SC SCH ×4 (08:23→17:11)
[2018-05-29 08:25] LABS: ALB/GLOB RATIO 1.1 (1.0-2.1); ALBUMIN 3.5 g/dL (3.5-5.0); ALT/SGPT 21 U/L (21-72); AST/SGOT 35 U/L (17-59); BLOOD UREA NITROGEN 24 mg/dL (9-20); GFR AFRICAN-AMERICAN > 60; GFR NON-AFRICAN AMERICAN > 60
[2018-05-29] MEDS ORDERED: Caffeine Citrated **INJ** 20 MG/ML IV ONE (08:53)
[2018-05-29] MEDS: Metoprolol Succinate 25 mg XL Tab PO SCH (11:44)
--- NOTE | 2018-05-29 11:44 | US ---
Date of service: 05/29/2018 PROCEDURE: DUPLEX DOPPLER ULTRASOUND ABDOMINAL AORTA HISTORY: History of Aneurysm COMPARISON: ABDOMEN PELVIS CT WITH CONTRAST 05/27/2018. TECHNIQUE: Ultrasound of the abdominal aorta was performed using grayscale and duplex Doppler techniques and longitudinal and transverse projections. FINDINGS: The abdominal aorta is widely patent through its bifurcation with approximate distal caliber measured as such: Proximal segment 2.3 x 1.7 cm. Mid segment 1.9 x 1.6 cm. Distal segment 1.3 x 1.1 cm. These are all normal measurements with no aneurysmal dilatation appreciated. No significant stenosis is appreciated with the abdominal aorta appearing nonfocal sonographically. IMPRESSION: No sonographic evidence to suggest abdominal aortic aneurysm or high-grade stenosis.
--- NOTE | 2018-05-29 15:10 | CP.PCM.PN ---
Subjective - Date & Time of Evaluation Date of Evaluation: 05/29/18 Time of Evaluation: 15:08 - Subjective Subjective: pt feels well today. Objective - Vital Signs/Intake and Output Vital Signs (last 24 hours): Temp Pulse Resp BP Pulse Ox 98.2 F 78 20 110/66 98 05/29/18 07:00 05/29/18 11:47 05/29/18 07:00 05/29/18 07:00 05/29/18 11:51 Intake and Output: 05/29/18 05/29/18 06:59 18:59 Output Total 750 Balance -750 - Medications Medications: Current Medications Acetaminophen (Tylenol 325mg Tab) 650 mg PO Q6 PRN PRN Reason: fever, pain Apixaban (Eliquis) 2.5 mg PO BID [facility] Last Admin: 05/29/18 11:44 Dose: 2.5 mg Aspirin (Ecotrin) 81 mg PO DAILY [facility] Last Admin: 05/29/18 11:44 Dose: 81 mg Dextrose (Dextrose 50% Inj) 0 ml IV STAT PRN; Protocol PRN Reason: Hypoglycemia Protocol Dextrose (Glutose 15) 0 gm PO ONCE PRN; Protocol PRN Reason: Hypoglycemia Protocol Glipizide (Glucotrol) 10 mg PO DAILY [facility] Last Admin: 05/29/18 11:44 Dose: 10 mg Glucagon (Glucagen Diagnostic Kit) 0 mg IM STAT PRN; Protocol PRN Reason: Hypoglycemia Protocol Dextrose (Dextrose 5% In Water 1000 Ml) 1,000 mls @ 0 mls/hr IV .Q0M PRN; Protocol; Per Protocol PRN Reason: Hypoglycemia Protocol Insulin Human Regular (Novolin R) 0 unit SC ACHS [facility] PRN Reason: Protocol Last Admin: 05/29/18 13:31 Dose: 2 units Metoprolol Succinate (Toprol Xl) 25 mg PO DAILY [facility] Last Admin: 05/29/18 11:44 Dose: 25 mg Rosuvastatin Calcium (Crestor) 5 mg PO HS [facility] Last Admin: 05/28/18 21:10 Dose: 5 mg Sitagliptin Phosphate (Januvia) 100 mg PO DAILY [facility] Last Admin: 05/29/18 11:43 Dose: 100 mg - Labs Labs: 05/29/18 07:47 05/29/18 07:47 PT 12.7 SECONDS (9.7-12.2) H 05/27/18 09:07 INR 1.2 05/27/18 09:07 APTT 34 SECONDS (21-34) 05/27/18 09:07 - Constitutional Appears: Well - Head Exam Head Exam: NORMAL INSPECTION - Eye Exam Eye Exam: EOMI, Normal appearance - ENT Exam ENT Exam: Mucous Membranes Moist - Respiratory Exam Respiratory Exam: Clear to Ausculation Bilateral - Cardiovascular Exam Cardiovascular Exam: REGULAR RHYTHM - Exam External exam: NORMAL EXTERNAL EXAM - Back Exam Back Exam: NORMAL INSPECTION - Neurological Exam Neurological Exam: Alert, Awake, Oriented x3 - Psychiatric Exam Psychiatric exam: Normal Affect Assessment and Plan - Assessment and Plan (Free Text) Assessment: 1. i reviewed nuclear images: there is a fixed inferoapicla LV perfusion defect. 2. pt is in nsr now 3. He feels well. pt is stable for discharge. Continue eliquis: pt understand why it was ordered. continue metoprolol. F/y with Dr Mason in a week.
--- NOTE | 2018-05-29 15:30 | CARD ---
APPROVED REPORT Date of service: 05/28/2018 EKG Measurement Heart [id number] <Conclusion> Atrial fibrillation Left axis deviation Abnormal ECG
--- NOTE | 2018-05-29 16:53 | CP.PCM.PN ---
<Martina Kirk - Last Filed: 05/29/18 16:48> Subjective - Date & Time of Evaluation Date of Evaluation: 05/29/18 Time of Evaluation: 07:30 - Subjective Subjective: PGY-1 Martina Kirk D.O. Medicine progress note for Dr. Kirkland's service: Patient was seen and examined this morning. He was resting comfortably in bed. He was NPO since midnight for a stress test today. He reports chest pain has not returned. Denies palpitations as well. He is currently in normal sinus rhythm. Denies SOB. Denies fever, chills, or diaphoresis. Denies N/V/D/C. Objective - Vital Signs/Intake and Output Vital Signs (last 24 hours): Temp Pulse Resp BP Pulse Ox 98.4 F 71 20 135/67 98 05/29/18 15:00 05/29/18 15:00 05/29/18 15:00 05/29/18 15:00 05/29/18 15:00 Intake and Output: 05/29/18 05/29/18 06:59 18:59 Intake Total 300 Output Total 750 Balance -750 300 - Medications Medications: Current Medications Acetaminophen (Tylenol 325mg Tab) 650 mg PO Q6 PRN PRN Reason: fever, pain Apixaban (Eliquis) 2.5 mg PO BID [facility] Last Admin: 05/29/18 11:44 Dose: 2.5 mg Aspirin (Ecotrin) 81 mg PO DAILY [facility] Last Admin: 05/29/18 11:44 Dose: 81 mg Dextrose (Dextrose 50% Inj) 0 ml IV STAT PRN; Protocol PRN Reason: Hypoglycemia Protocol Dextrose (Glutose 15) 0 gm PO ONCE PRN; Protocol PRN Reason: Hypoglycemia Protocol Glipizide (Glucotrol) 10 mg PO DAILY [facility] Last Admin: 05/29/18 11:44 Dose: 10 mg Glucagon (Glucagen Diagnostic Kit) 0 mg IM STAT PRN; Protocol PRN Reason: Hypoglycemia Protocol Dextrose (Dextrose 5% In Water 1000 Ml) 1,000 mls @ 0 mls/hr IV .Q0M PRN; Protocol; Per Protocol PRN Reason: Hypoglycemia Protocol Insulin Human Regular (Novolin R) 0 unit SC ACHS [facility] PRN Reason: Protocol Last Admin: 05/29/18 13:31 Dose: 2 units Metoprolol Succinate (Toprol Xl) 25 mg PO DAILY [facility] Last Admin: 05/29/18 11:44 Dose: 25 mg Rosuvastatin Calcium (Crestor) 5 mg PO [facility] Last Admin: 05/28/18 21:10 Dose: 5 mg Sitagliptin Phosphate (Januvia) 100 mg PO DAILY [facility] Last Admin: 05/29/18 11:43 Dose: 100 mg - Labs Labs: 05/29/18 07:47 05/29/18 07:47 PT 12.7 SECONDS (9.7-12.2) H 05/27/18 09:07 INR 1.2 05/27/18 09:07 APTT 34 SECONDS (21-34) 05/27/18 09:07 - Constitutional Appears: Well, No Acute Distress, Other (thin) - Head Exam Head Exam: ATRAUMATIC, NORMAL INSPECTION, NORMOCEPHALIC - Eye Exam Eye Exam: EOMI, Normal appearance - ENT Exam ENT Exam: Mucous Membranes Moist ( ) - Neck Exam Neck Exam: Normal Inspection - Respiratory Exam Respiratory Exam: Clear to Ausculation Bilateral, NORMAL BREATHING PATTERN - Cardiovascular Exam Cardiovascular Exam: REGULAR RHYTHM, +S1, +S2. absent: Murmur - GI/Abdominal Exam GI & Abdominal Exam: Soft, Normal Bowel Sounds. absent: Tenderness - Rectal Exam Rectal Exam: Deferred - Extremities Exam Extremities Exam: Full ROM - Back Exam Back Exam: NORMAL INSPECTION - Neurological Exam Neurological Exam: Alert, Awake, Oriented x3 - Psychiatric Exam Psychiatric exam: Normal Affect, Normal Mood - Skin Skin Exam: Dry, Intact, Normal Color, Warm Assessment and Plan - Assessment and Plan (Free Text) Assessment: Patient is an 82 yo male who presented with chest pain at rest. It resolved on its own. He has a h/o CAD with 5 cardiac stents. He also has a h/o aortic aneurysm, last measuring 4 cm in 04/2018. The patient reports continuing to smoke a pack a day. Ruled out enlarging/dissecting aortic aneurysm with CTA. New onset paroxysmal Afib last night. Patient again in Afib in afternoon. Patient is asymptomatic- denies chest pain, palpitations, SOB. Repeat CT and abdominal u/s ruled out aortic aneurysm. Plan: Atypical chest pain- h/o cardiac stents x5 - Admit to telemetry - Cardiology consult (Dr. Cali)- stress test in AM - Incentive spirometer q4hrs while awake - ASA 81 mg PO daily - Discontinue Plavix as stents were >1 yr ago - D-dimer <200 - BNP 707 - Troponins negative x4 - EKG negative x2 - Third EKG Afib RVR (109) - Fourth EKG Afib (90s) - Echo- EF 65-70%, no overt abnormalities to explain symptoms - TSH, T4 - CTA chest/abd/pelvis- no acute abnormalities, no aortic aneurysm - Walking stress test- cardiology (Dr. Cali) cleared patient to follow- up as outpatient New onset paroxysmal atrial fibrillation- Afib RVR overnight, then a brief run of aberration was noted, not V tach, prior to onset Afib this afternoon - Monitor on telemetry - Start metoprolol succinate 25 mg PO daily - Start Eliquis 2.5 mg PO BID - Discontinue Plavix as stents were >1 yr ago - Cardiology consult (Karely) - Walking stress test- cardiology (Dr. Cali) cleared patient to follow- up as outpatient Aortic aneurysm- r/o aortic dissection - BPs b/l upper extremities equal - CTA 10/2017 IMPRESSION: Ascending aortic aneurysm measures approximately 4 cm in AP dimension. - CTA 04/2018 MEDIASTINUM: Unremarkable thoracic aorta. No aneurysm. - CTA chest/abd/pelvis 05/27- in the abd and pelvis, arterial phase contrast- enhanced and lack of oral contrast limits interpretation, abd u/s recommended AORTA: The main pulmonary artery segment is normal in caliber. No thoracic aortic aneurysm. Remainder of the retroperitoneum reflects non aneurysmal atherosclerotic abdominal aorta. T2DM, chronic, stable - A1c 7.4 - Continue home Januvia 100 mg PO daily - Continue home glipizide 10 mg PO daily - Accuchecks ACHS - Low-dose sliding scale - Hypoglycemic protocol Essential HTN, chronic, stable - Discontinue losartan - Start metoprolol succinate 25 mg PO daily - Vitals q4hrs HLD, chronic, stable- not on home statin - Start Crestor 5 mg PO qhs - Lipid panel wnl Pulmonary nodule, RLL, stable in size- pt asymptomatic, 63 pk yrs - Incentive spirometer q4hrs while awake - CT 10/2017- 5 mm pulmonary nodule, right lower lobe. - CTA chest/abd/pelvis 05/27: COPD pattern reiterated with stable 5 mm nodule right lower lobe. PT consult VTE ppx: SCDs, Eliquis 2.5 mg PO BID GI ppx: not indicated IVF: not indicated Diet: Heart healthy Code status: full code Dispo: likely discharge tomorrow pending PT home services <Ankur Tabor - Last Filed: 05/30/18 19:02> Objective - Vital Signs/Intake and Output Vital Signs (last 24 hours): Temp Pulse Resp BP Pulse Ox 98.8 F 92 H 20 134/73 97 05/30/18 07:20 05/30/18 08:06 05/30/18 07:20 05/30/18 07:20 05/30/18 07:20 - Labs Labs: 05/29/18 07:47 05/29/18 07:47 PT 12.7 SECONDS (9.7-12.2) H 05/27/18 09:07 INR 1.2 05/27/18 09:07 APTT 34 SECONDS (21-34) 05/27/18 09:07 Attending/Attestation - Attestation I have personally seen and examined this patient.: Yes I have fully participated in the care of the patient.: Yes I have reviewed all pertinent clinical information, including history, physical exam and plan: Yes Notes (Text): 05/30/18 19:02 This is a late entry. Care of this patient was gone over in detail with the resident. Ankur Tabor D.O.
--- NOTE | 2018-05-30 06:13 | CP.PCM.DIS ---
<Martina Kirk - Last Filed: 05/30/18 17:58> Provider - Provider Date of Admission: 05/27/18 09:49 Attending physician: Ryan Riddle DO Primary care physician: Dr. Ogden Consults: cardio (Karely), PT Time Spent in preparation of Discharge (in minutes): 45 Diagnosis - Discharge Diagnosis (1) Atypical chest pain Status: Resolved Priority: High (2) New onset atrial fibrillation Status: Acute Priority: Medium (3) CAD (coronary artery disease) Status: Chronic Priority: Medium (4) T2DM (type 2 diabetes mellitus) Status: Chronic Priority: Low (5) HTN (hypertension) Status: Chronic Priority: Low (6) HLD (hyperlipidemia) Status: Chronic Priority: Low Hospital Course - Lab Results Lab Results: Most Recent Lab Values WBC 8.0 K/uL (4.8-10.8) 05/29/18 07:47 RBC 3.75 Mil/uL (4.40-5.90) L 05/29/18 07:47 Hgb 13.5 g/dL (12.0-18.0) 05/29/18 07:47 Hct 38.6 % (35.0-51.0) 05/29/18 07:47 MCV 103.1 fL (80.0-94.0) H 05/29/18 07:47 MCH 36.2 pg (27.0-31.0) H 05/29/18 07:47 MCHC 35.1 g/dL (33.0-37.0) 05/29/18 07:47 RDW 14.2 % (11.5-14.5) 05/29/18 07:47 Plt Count 146 K/uL (130-400) 05/29/18 07:47 MPV 7.7 fL (7.2-11.7) 05/29/18 07:47 Neut % (Auto) 72.3 % (50.0-75.0) 05/29/18 07:47 Lymph % (Auto) 14.9 % (20.0-40.0) L 05/29/18 07:47 Patrick % (Auto) 10.7 % (0.0-10.0) H 05/29/18 07:47 Eos % (Auto) 1.7 % (0.0-4.0) 05/29/18 07:47 Baso % (Auto) 0.4 % (0.0-2.0) 05/29/18 07:47 Neut # (Auto) 5.8 K/uL (1.8-7.0) 05/29/18 07:47 Lymph # (Auto) 1.2 K/uL (1.0-4.3) 05/29/18 07:47 Patrick # (Auto) 0.9 K/uL (0.0-0.8) H 05/29/18 07:47 Eos # (Auto) 0.1 K/uL (0.0-0.7) 05/29/18 07:47 Baso # (Auto) 0.0 K/uL (0.0-0.2) 05/29/18 07:47 Neutrophils % (Manual) 83 % (50-75) H 05/27/18 09:02 Band Neutrophils % 2 % (0-2) 05/27/18 09:02 Lymphocytes % (Manual) 9 % (20-40) L 05/27/18 09:02 Monocytes % (Manual) 6 % (0-10) 05/27/18 09:02 Platelet Estimate Normal (NORMAL) 05/27/18 09:02 Macrocytosis (manual) Slight 05/27/18 09:02 PT 12.7 SECONDS (9.7-12.2) H 05/27/18 09:07 INR 1.2 05/27/18 09:07 APTT 34 SECONDS (21-34) 05/27/18 09:07 D-Dimer, Quantitative < 200 ng/mlDDU (0-243) 05/27/18 14:00 Sodium 133 mmol/L (132-148) 05/29/18 07:47 Potassium 4.7 mmol/L (3.6-5.2) 05/29/18 07:47 Chloride 98 mmol/L (98-107) 05/29/18 07:47 Carbon Dioxide 30 mmol/L (22-30) 05/29/18 07:47 Anion Gap 9 (10-20) L 05/29/18 07:47 BUN 24 mg/dL (9-20) H 05/29/18 07:47 Creatinine 0.9 mg/dL (0.8-1.5) 05/29/18 07:47 Est GFR ( Amer) > 60 05/29/18 07:47 Est GFR (Non-Af Amer) > 60 05/29/18 07:47 POC Glucose (mg/dL) 214 mg/dL (65-110) H 05/29/18 21:02 Random Glucose 173 mg/dL (75-110) H 05/29/18 07:47 Hemoglobin A1c 7.4 % (4.2-6.5) H 05/28/18 07:22 Calcium 9.0 mg/dl (8.6-10.4) 05/29/18 07:47 Phosphorus 3.4 mg/dL (2.5-4.5) 05/29/18 07:47 Magnesium 2.0 mg/dL (1.6-2.3) 05/29/18 07:47 Total Bilirubin 0.8 mg/dL (0.2-1.3) 05/29/18 07:47 AST 35 U/L (17-59) 05/29/18 07:47 ALT 21 U/L (21-72) D 05/29/18 07:47 Alkaline Phosphatase 57 U/L (38-126) 05/29/18 07:47 Troponin I < 0.0120 ng/mL (0.00-0.120) 05/28/18 07:22 NT-Pro-B Natriuret Pep 707 pg/mL (0-900) 05/27/18 09:02 Total Protein 6.7 g/dL (6.3-8.3) 05/29/18 07:47 Albumin 3.5 g/dL (3.5-5.0) D 05/29/18 07:47 Globulin 3.2 gm/dL (2.2-3.9) 05/29/18 07:47 Albumin/Globulin Ratio 1.1 (1.0-2.1) 05/29/18 07:47 Triglycerides 43 mg/dL (0-149) 05/28/18 07:22 Cholesterol 106 mg/dL (0-199) 05/28/18 07:22 LDL Cholesterol Direct 34 mg/dL (0-129) 05/28/18 07:22 HDL Cholesterol 38 mg/dL (30-70) 05/28/18 07:22 Free T4 1.32 ng/dL (0.78-2.19) 05/28/18 07:22 TSH 3rd Generation 0.47 mIU/L (0.46-4.68) 05/27/18 15:10 - Hospital Course Hospital Course: Patient is an 82 yo male with a history of CAD with 5 stents, 4 cm aortic aneurysm, T2DM, HTN, and HLD who presents with substernal chest pain, SOB, and palpations that began this morning. The patient states he was feeling in his normal state of health when he woke up but then gradually developed chest pain around 7 AM while he was sitting. He describes the pain as pressure. He denies radiation of pain. The patient reports not eating anything or taking his medications because of the pain. 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 The patient reports that the pain resolved on its own shortly after arriving at the hospital. Of note, the patient states he was anxious the day prior due to losing $6000 gambling. The patient was given ASA 325 mg in the ED. Initial troponin and EKG were negative. The patient is now complaining of upper back pain, which he states is chronic. The patient also reports inconsistent compliance with medications, in particular , ASA 81. Pt reports that he ambulates independently at home. He denies PFEIFFER and sweating. He denies recent fevers of chills. He denies N/V/D/C/abd pain. He denies urinary symptoms. He denies current SOB, palpitations. CT was ruled out with negative troponins x4 and EKGs. Aortic aneurysm was ruled out with both CTA chest, abdominal, pelvis, and abdominal u/s. Patient was monitored on telemetry. On day 2, he was found to have paroxysmal A fib (HR 90s) . Consequently, he was started on Eliquis. He was seen by cardiology (Dr. Cali). He had a walking stress test and was cleared for discharge to follow- up as an outpatient. Patient's vitals and blood glucose were well controlled throughout his admission. Upon discharge, the patient was asymptomatic. He was in normal sinus rhythm. He denied chest pain. He denied palpitations. He denied SOB. He was eating and sleeping well. He will follow up with his hardware design engineer, Dr. Mason, as an outpatient. He will also be referred to outpatient PT. Discharge Exam - Head Exam Head Exam: ATRAUMATIC, NORMAL INSPECTION, NORMOCEPHALIC - Eye Exam Eye Exam: EOMI, Normal appearance - ENT Exam ENT Exam: Mucous Membranes Moist, Normal Exam - Neck Exam Neck exam: Normal Inspection - Respiratory Exam Respiratory Exam: Clear to PA & Lateral, NORMAL BREATHING PATTERN - Cardiovascular Exam Cardiovascular Exam: REGULAR RHYTHM, +S1, +S2 - GI/Abdominal Exam GI & Abdominal Exam: Bruit, Normal Bowel Sounds, Soft, Unremarkable - Rectal Exam Rectal Exam: Deferred - Extremities Exam Extremities exam: full ROM, normal capillary refill, normal inspection, pedal pulses present - Back Exam Back exam: NORMAL INSPECTION - Neurological Exam Neurological exam: Abnormal Gait (unsteady), Alert, CN II-XII Intact, Oriented x3 - Psychiatric Exam Psychiatric exam: Normal Affect, Normal Mood - Skin Skin Exam: Dry, Intact, Normal Color, Warm Discharge Plan - Discharge Medications Prescriptions: Apixaban [Eliquis] 2.5 mg PO BID #60 tab Aspirin [Ecotrin] 81 mg PO DAILY #30 tabec GlipiZIDE [Glucotrol] 10 mg PO DAILY #30 tab Metoprolol Succinate XL [Toprol XL] 25 mg PO DAILY #30 tab Rosuvastatin Calcium [Crestor] 5 mg PO HS #30 tab SITagliptin [Januvia] 100 mg PO DAILY #30 tab - Follow Up Plan Condition: STABLE Disposition: HOME/ ROUTINE Patient education suggested?: Yes Instructions: Sitagliptin, Heart Healthy Diet, Chest Pain, High Blood Pressure (DC), Apixaban, Aspirin, Glipizide, Metoprolol, Rosuvastatin Additional Instructions: Patient is cleared for discharge as per Dr. Ankur Tabor. He with follow-up with his primary care provider, Dr. Ogden, and his hardware design engineer, Dr. Mason, within one week of discharge. The patient will return home and will be referred for outpatient physical therapy. Patient was instructed to stop smoking and drinking. The patient is instructed to stop the following medications: Losartan Plavix The patient is being discharged with the following new prescriptions. These are the only medications that the patient should be taking: Aspirin 81 mg daily- 8 AM Metoprolol 25 mg daily- 8 AM Eliquis 2.5 mg twice a day- 8 AM and 8 PM Januvia 100 mg daily- 8 AM Glipizide 10 mg daily with lunch- 1 PM Crestor 5 mg each night- 8 PM Patient is to return to the ED if symptoms recur or are worsening. This was explained to the patient who understands and agrees. Referrals: Mario Ogden MD [Staff Provider] - Melquiades Mason DO [Doctor Osteopathy] - <Ankur Tabor - Last Filed: 05/30/18 19:02> Provider - Provider Date of Admission: 05/27/18 09:49 Attending physician: Ryan Riddle DO Time Spent in preparation of Discharge (in minutes): 40 Hospital Course - Lab Results Lab Results: Most Recent Lab Values WBC 8.0 K/uL (4.8-10.8) 05/29/18 07:47 RBC 3.75 Mil/uL (4.40-5.90) L 05/29/18 07:47 Hgb 13.5 g/dL (12.0-18.0) 05/29/18 07:47 Hct 38.6 % (35.0-51.0) 05/29/18 07:47 MCV 103.1 fL (80.0-94.0) H 05/29/18 07:47 MCH 36.2 pg (27.0-31.0) H 05/29/18 07:47 MCHC 35.1 g/dL (33.0-37.0) 05/29/18 07:47 RDW 14.2 % (11.5-14.5) 05/29/18 07:47 Plt Count 146 K/uL (130-400) 05/29/18 07:47 MPV 7.7 fL (7.2-11.7) 05/29/18 07:47 Neut % (Auto) 72.3 % (50.0-75.0) 05/29/18 07:47 Lymph % (Auto) 14.9 % (20.0-40.0) L 05/29/18 07:47 Patrick % (Auto) 10.7 % (0.0-10.0) H 05/29/18 07:47 Eos % (Auto) 1.7 % (0.0-4.0) 05/29/18 07:47 Baso % (Auto) 0.4 % (0.0-2.0) 05/29/18 07:47 Neut # (Auto) 5.8 K/uL (1.8-7.0) 05/29/18 07:47 Lymph # (Auto) 1.2 K/uL (1.0-4.3) 05/29/18 07:47 Patrick # (Auto) 0.9 K/uL (0.0-0.8) H 05/29/18 07:47 Eos # (Auto) 0.1 K/uL (0.0-0.7) 05/29/18 07:47 Baso # (Auto) 0.0 K/uL (0.0-0.2) 05/29/18 07:47 Neutrophils % (Manual) 83 % (50-75) H 05/27/18 09:02 Band Neutrophils % 2 % (0-2) 05/27/18 09:02 Lymphocytes % (Manual) 9 % (20-40) L 05/27/18 09:02 Monocytes % (Manual) 6 % (0-10) 05/27/18 09:02 Platelet Estimate Normal (NORMAL) 05/27/18 09:02 Macrocytosis (manual) Slight 05/27/18 09:02 PT 12.7 SECONDS (9.7-12.2) H 05/27/18 09:07 INR 1.2 05/27/18 09:07 APTT 34 SECONDS (21-34) 05/27/18 09:07 D-Dimer, Quantitative < 200 ng/mlDDU (0-243) 05/27/18 14:00 Sodium 133 mmol/L (132-148) 05/29/18 07:47 Potassium 4.7 mmol/L (3.6-5.2) 05/29/18 07:47 Chloride 98 mmol/L (98-107) 05/29/18 07:47 Carbon Dioxide 30 mmol/L (22-30) 05/29/18 07:47 Anion Gap 9 (10-20) L 05/29/18 07:47 BUN 24 mg/dL (9-20) H 05/29/18 07:47 Creatinine 0.9 mg/dL (0.8-1.5) 05/29/18 07:47 Est GFR ( Amer) > 60 05/29/18 07:47 Est GFR (Non-Af Amer) > 60 05/29/18 07:47 POC Glucose (mg/dL) 141 mg/dL (65-110) H 05/30/18 06:03 Random Glucose 173 mg/dL (75-110) H 05/29/18 07:47 Hemoglobin A1c 7.4 % (4.2-6.5) H 05/28/18 07:22 Calcium 9.0 mg/dl (8.6-10.4) 05/29/18 07:47 Phosphorus 3.4 mg/dL (2.5-4.5) 05/29/18 07:47 Magnesium 2.0 mg/dL (1.6-2.3) 05/29/18 07:47 Total Bilirubin 0.8 mg/dL (0.2-1.3) 05/29/18 07:47 AST 35 U/L (17-59) 05/29/18 07:47 ALT 21 U/L (21-72) D 05/29/18 07:47 Alkaline Phosphatase 57 U/L (38-126) 05/29/18 07:47 Troponin I < 0.0120 ng/mL (0.00-0.120) 05/28/18 07:22 NT-Pro-B Natriuret Pep 707 pg/mL (0-900) 05/27/18 09:02 Total Protein 6.7 g/dL (6.3-8.3) 05/29/18 07:47 Albumin 3.5 g/dL (3.5-5.0) D 05/29/18 07:47 Globulin 3.2 gm/dL (2.2-3.9) 05/29/18 07:47 Albumin/Globulin Ratio 1.1 (1.0-2.1) 05/29/18 07:47 Triglycerides 43 mg/dL (0-149) 05/28/18 07:22 Cholesterol 106 mg/dL (0-199) 05/28/18 07:22 LDL Cholesterol Direct 34 mg/dL (0-129) 05/28/18 07:22 HDL Cholesterol 38 mg/dL (30-70) 05/28/18 07:22 Free T4 1.32 ng/dL (0.78-2.19) 05/28/18 07:22 TSH 3rd Generation 0.47 mIU/L (0.46-4.68) 05/27/18 15:10 Attending/Attestation - Attestation I have personally seen and examined this patient.: Yes I have fully participated in the care of the patient.: Yes I have reviewed all pertinent clinical information, including history, physical exam and plan: Yes Notes (Text): 05/30/18 19:01 Patient was seen and examined at 10:00 AM Care of this patient and discharge instructions were gone over with the resident in detail Ankur Tabor D.O.
[2018-05-30 08:10] VITALS: PULSE 92
[2018-05-30 08:15] VITALS: BP 134/73; TEMP 98.8; O2SAT 97
[2018-05-30] MEDS: Metoprolol Succinate 25 mg XL Tab PO SCH (09:51)
[2018-05-30] MEDS: (Novolin R) Insulin Human Regular 100 units/ml vial SC SCH (09:51)
[2018-05-30] MEDS ORDERED: Pneumococcal 23-Valent Vaccine IM ONE (10:29)
--- NOTE | 2018-05-30 13:53 | CARD ---
APPROVED REPORT Date of service: 05/27/2018 EKG Measurement Heart [id number] <Conclusion> Normal sinus rhythm Left axis deviation Abnormal ECG
--- NOTE | 2018-05-30 14:03 | CARD ---
APPROVED REPORT Date of service: 05/27/2018 EKG Measurement Heart [id number] CO [id number] <Conclusion> Normal sinus rhythm Left axis deviation Abnormal ECG
--- NOTE | 2018-05-31 00:21 | CARD ---
APPROVED REPORT Date of service: 05/29/2018 Protocol: PHARMACOLOGICAL STRESS Test Type: LEXISCAN Test Indications: CHEST PAIN Medications: LIST SCAN Medical History: CHEST PAIN Target HR: 139 bpm Resting ECG: normal Resting Heart Rate: 72 bpm Resting Blood Pressure: 110/60mmHg submaximum (85%): 118 bpm TEST SUMMARY [id number]/60.0. INFUSIONDOSE 100:300.00.01.072/.0. [id number]/60.0. PROCEDURE Pharmacologic stress testing was performed using 0.4mg per 5ml of regadenoson given intravenously over 7-10 seconds. POST EXERCISE Reason for Termination: Protocol Completed Target HR: No Max HR: 72 bpm 63% of Maximum Predicted HR: 139 bpm Exercise duration: 00:30 min:sec, 0 Stage Exercise capacity: 1.0METs Max Blood Pressure: 112/60mmHg Blood Pressure response to exercise: normal resting BP - appropriate response Heart Rate response to exercise: appropriate Chest Pain: No, none Angina index: 0 Arrhythmia: No, none ST Change: No, none Deviation: 0 mm INTERPRETATION Stress EKG Conclusion: NEGATIVE LEXISCAN STRESS TEST NORMAL BP RESPONSE TO LEXISCAN NUCLEAR STUDIES TO BE READ SEPARATELY EXAM: Myocardial Perfusion STRESS/REST Imaging Protocol The imaging protocol used to acquire images was Stress Tc-99m/rest Tc-99m 1 day Stress Spect myocardial perfusion imaging was performed in supine position 45 minutes following the injection of 12.3 mCi of Tc-99 Myoview. Gated Rest Spect was performed 55 minutes after intravenous 32.1 mci Tc-99 Myoview injection. The images were gated to evaluate regional wall motion and calculate ventricular ejection fraction.Images were reconstructed using backfilter projection method in short horizontal and verticle long axis. Spect slices were generated. RESTING DATA EDV71.39gvZK9.70L/min1/3 Pk. Filling Rate1.81EDV/sec LV Time to Pk. Filling Hbeo923.63msec ESV23.00mlMyocardial Uqnm189.00gLV Time to Pk. Ejection Hyvg192.50msec Pk. Fill Rate2.94EDV/secAv. Heart Rate78.00bpm EF68.00%Pk. Emptying Rate4.45ESV/sec STRESS DATA EDV75.97ixQN5.80L/min ESV24.00mlMyocardial Cxwk476.00g Pk. Fill Rate3.02EDV/sec EF68.00%Pk. Emptying Rate3.36ESV/sec 1/3 Pk. Filling Rate0.48EDV/secRegional WT score at stress:0.00 LV Time to Pk. Filling Rate:237.30msecRegional WM score at stress:0.00 LV Time to Pk. Ejection Rate:142.07msecSummed WT score at stress:5.00 Av. Heart Rate75.00bpmSummed WM score at stress:5.00 LV Perf. Quant 17 Seg. SSS1.00 17 Seg. SRS4.00 17 Seg. SDS0.00 Stress Defect Extent (% LAD)0.00Rest Defect Extent (% LAD)0.00Rev. Defect Extent (% LAD)0.00 Stress Defect Extent (% LCX)12.50Rest Defect Extent (% LCX)12.50Rev. Defect Extent (% LCX)1.30 Stress Defect Extent (% RCA)0.00Rest Defect Extent (% RCA)4.40Rev. Defect Extent (% RCA)0.00 Stress Defect Extent (% REFUGIO)2.20Rest Defect Extent (% REFUGIO)6.70Rev. Defect Extent (% REFUGIO)0.20 IMPRESSION Normal Myocardial Perfusion exercise stress study Left Ventricle LV Function:Left ventricle systolic function is normal. The Ejection Fraction is 65-70%. Metabolism/Perfusion There are no perfusion/metabolism defects. Conclusion 1. There is no stress-induced ischemia noted. 2. Left ventricle systolic function is normal. 3. The Ejection Fraction is 65-70%.
--- NOTE | 2018-05-31 19:30 | CARD ---
APPROVED REPORT Date of service: 05/27/2018 EKG Measurement Heart [id number] MI [id number] <Conclusion> Normal sinus rhythm Normal ECG
== END 2018-05-30 11:35 | disposition home or self-care (01) ==
LOC: C.ER 08:35 → C.9E 09:49 → C.6T 11:24
PROVIDERS: ADMIT Hospitalist; ATTEND Hospitalist
DX: I25.10 Atherosclerotic heart disease of native coronary artery without angina pectoris (principal); I48.0 Paroxysmal atrial fibrillation; I71.2 Thoracic aortic aneurysm, without rupture; I71.4 Abdominal aortic aneurysm, without rupture; J44.9 Chronic obstructive pulmonary disease, unspecified; Z79.01 Long term (current) use of anticoagulants; Z79.82 Long term (current) use of aspirin; Z79.84 Long term (current) use of oral hypoglycemic drugs; Z95.5 Presence of coronary angioplasty implant and graft; M54.6 Pain in thoracic spine; R91.1 Solitary pulmonary nodule; E11.9 Type 2 diabetes mellitus without complications; E78.00 Pure hypercholesterolemia, unspecified; F17.210 Nicotine dependence, cigarettes, uncomplicated; I10 Essential (primary) hypertension
CPT/HCPCS: 36415; 71045; 71275; 74174; 76770; 78452; 80048; 80053; 80061; 82948; 83036; 83735; 83880; 84100; 84439; 84443; 84484; 85025; 85378; 85610; 85730; 93005; 93017; 93306; 97116; 97162; 97530; 99285; A9502; G0378; G8978; G8979; J2785; Q9967